=== PATIENT | male | born 1990 | race Caucasian/White ===

== ENCOUNTER 2021-09-30 13:35 | Emergency (ER) | payer SELFPAY ==
[~2021-09-30] VITALS: Ht 185.4 cm; Wt 97.5 kg
== END 2021-09-30 16:39 | disposition home or self-care (01) ==
LOC: ER 13:35
DX: I83.812 Varicose veins of left lower extremity with pain (principal); R20.0 Anesthesia of skin
CPT/HCPCS: 93971